=== PATIENT | male | born 1930 | race Caucasian/White ===

== ENCOUNTER 2016-11-27 20:34 | Inpatient (IN) | payer MEDICARE ==
[2016-11-27] MEDS ORDERED: ACETAMINOPHEN 500 MG TABLET ONE (21:22)
[2016-11-27] MEDS ORDERED: ONDANSETRON 4 MG/2ML 2 ML VIAL ONE (21:22)
[2016-11-27] MEDS ORDERED: SODIUM CHLORIDE 0.9% 500 ML ONE (21:22)
[2016-11-27 21:29] LABS: ABSOLUTE NEUTROPHIL COUNT 10.8 K/mm3 (1.8-7.7); BASO % 0.2 % (0.2-1.0); EOS % 0.2 % (0.9-2.9); HEMATOCRIT 38.5 % (32.0-52.0); HEMOGLOBIN 12.6 gm/l (14.0-18.0); IMM NEUT # 0.1 K/mm3 (0-0.2); IMM NEUT% 0.6 % (0-1); LYMPH # 0.7 (1.0-4.8); LYMPH % 5.6 % (15-45); MEAN CELL VOLUME 95.3 fl (80.0-94.0); MEAN CORPUSCULAR HEMOGLOBIN 31.2 pg (27.0-31.0); MEAN CORPUSCULAR HGB CONC 32.7 g/dl (33.0-37.0); MEAN PLATELET VOLUME 10.7 fl (7.4-10.4); MONO % 7.9 % (4-12); NEUT % 85.5 % (43-75); PLATELET COUNT 236 K/mm3 (130-400); RED CELL DISTRIBUTION WIDTH 13.9 % (11.5-14.5)
[2016-11-27 21:40] LABS: ALBUMIN 3.4 gm/dL (3.5-5.7); CALCIUM 8.6 mg/dL (8.6-10.3)
[2016-11-27 21:45] LABS: TROPONIN I 0.03 ng/ml (0.0-0.06)
[2016-11-27 21:49] LABS: CKMB ISOENZYME 2.1 ng/ml (0.6-6.3)
--- NOTE | 2016-11-27 22:18 | CT ---
Name: JACQUI NUNEZ Exam: CT head without contrast Comparison: None Clinical history: Ground-level fall. Weakness. Technique: Helical CT was performed through the head. Angled axial reconstructions were obtained. Sagittal and coronal reconstructions were obtained as well. No contrast was given. An automated dose reduction technique was used to minimize patient radiation dose. Findings: There is no shift of midline structures. Diffuse cerebral atrophy is present. Diffuse symmetric decreased density is noted within the deep white matter tracts most compatible with chronic small vessel ischemic change. There is no mass, mass effect or hemorrhage. Cisterns are uneffaced. Posterior fossa is unremarkable. Visualized paranasal sinuses and mastoid air cells are within normal limits. There is no fracture. Impression: Atrophy and chronic small vessel ischemic change Note: The above report was uploaded to [facility]'s electronic medical records system at 2214 hours.
[2016-11-27] MEDS ORDERED: DILTIAZEM HCL 5 MG/ML 5ML VIAL IV ONE (22:25)
[2016-11-27 23:17] LABS: SPECIFIC GRAVITY 1.025 (1.001-1.030); URINE BILIRUBIN NEGATIVE (NEGATIVE); URINE BLOOD 1+ (NEGATIVE); URINE GLUCOSE (UA) NEGATIVE (NEGATIVE); URINE LEUKOCYTE ESTERASE NEGATIVE (NEGATIVE); URINE NITRITE NEGATIVE (NEGATIVE); URINE PROTEIN TRACE (NEGATIVE); URINE UROBILINOGEN NORMAL (0-1 mg/dl)
[2016-11-27 23:20] LABS: URINE APPEARANCE CLEAR; URINE COLOR AMBER
[2016-11-27 23:28] LABS: URINE BACTERIA 0; URINE EPITHELIAL CELLS 0-2 /hpf; URINE WBC 0-2 /hpf
[2016-11-27] MEDS ORDERED: CEFTRIAXONE 1 GRAM DUPLEX 50 ML IV ONE (23:48)
[2016-11-28] MEDS ORDERED: SODIUM CHLORIDE 0.9% 500 ML ONE (01:56)
[2016-11-28] MEDS ORDERED: SODIUM CHLORIDE 0.9% FLUSH 10 ML ONE (01:56)
[2016-11-28] MEDS ORDERED: PUMP TUBING ONE (01:56)
[2016-11-28] MEDS ORDERED: MAGNESIUM HYDROXIDE 30 ML UDCUP PO PRN (02:02)
[2016-11-28] MEDS ORDERED: BLISTEX LIPSTICK 1 EACH TP PRN (02:02)
[2016-11-28] MEDS ORDERED: SODIUM CHLORIDE 0.9% 100 ML IV PRN (02:02)
[2016-11-28] MEDS ORDERED: BISACODYL 10 MG SUP PR PRN (02:02)
[2016-11-28] MEDS ORDERED: BISACODYL 5 MG TABLET.EC PO PRN (02:02)
[2016-11-28] MEDS ORDERED: MENTHOL/CETYLPYRD 1 EACH LOZENGE PO PRN (02:02)
[2016-11-28] MEDS ORDERED: SODIUM CHLORIDE 0.9% 500 ML IV SCH (02:15)
[2016-11-28] MEDS ORDERED: SODIUM CHLORIDE 0.9% 1,000 ML IV SCH (02:15)
[2016-11-28] MEDS ORDERED: SODIUM CHLORIDE 0.9% 1,000 ML ONE (02:39)
[2016-11-28] MEDS ORDERED: AZITHROMYCIN 500 MG VIAL ONE (02:41)
[2016-11-28] MEDS ORDERED: SODIUM CHLORIDE 0.9% 250 ML IV ONE (02:51)
[2016-11-28] MEDS ORDERED: AZITHROMYCIN IV SCH (03:00)
[2016-11-28] MEDS ORDERED: SODIUM CHLORIDE NS ADD VANTAGE IV SCH ×2 (03:00→21:00)
[2016-11-28 05:38] VITALS: BMI 26.6
--- NOTE | 2016-11-28 07:58 | HP ---
JACQUI NUNEZ [id number] DATE OF ADMISSION: November 28, 2016 CHIEF COMPLAINT: Fever, weakness, and found down. HISTORY OF PRESENT ILLNESS: The patient is an 85-year-old male who was discovered by his on the ground today about 6 or 7 p.m. Paramedics were called. He was noted to be somewhat confused but no fractures or other obvious abnormalities noted. Later he was throwing up and noted to have a fever. He has had some difficulties with walking because of a recent foot injury and is reported to have cracked bone in his ankle the last couple of weeks. He was brought to the emergency room and was thought to have possible atrial fibrillation but is now in normal sinus rhythm. He has had a cough with some chest discomfort noted. He did not get his flu shot this year. He is up to date on Pneumovax. He has had about four falls in the last month, most of them attributed to his ankle injury. No others around him have been ill. PAST MEDICAL HISTORY: Remarkable for: 1. Rheumatoid arthritis. He has been on methotrexate and Plaquenil. 2. He has a history of BPH. 3. History of right fourth finger fracture. 4. Left hip fracture. PAST SURGICAL HISTORY: 1. Open reduction internal fixation of the left hip in 2014. 2. Jaw fracture in 1964. 3. Cardiac stents in 1994. 4. Mastoidectomy. 5. Skin cancer removal. ALLERGIES: NO KNOWN DRUG ALLERGIES. MEDICATIONS: 1. In the past he has been on methotrexate and Plaquenil. 2. Folic acid. 3. Pantothenic acid. 4. Aspirin 81 mg daily. CODE STATUS: According to his family, he would accept a brief resuscitation but would not want any aggressive intervention or a retirement life support situation. SOCIAL HISTORY: He is a [place] [employer] from [employer]. He is a retired horticultural farmer. He lives at [facility]. He has been for almost 70 years. No smoking, no alcohol. No particular sikh affiliation currently. FAMILY HISTORY: Father at 70 of heart failure. Mom in her 80s of Alzheimer's. He had had a sister who had been mentally handicapped. REVIEW OF SYSTEMS: Eyes are a bit dry. He is hard of hearing. Nose is okay. Mouth is okay. He has a partial denture. Neck is okay. Some cough noted, but no syncope. No heart complaints or heart history. He had a previous history of atrial fibrillation in the . No stomach complaints other than he did vomit, but no blood was seen and no coffee grounds noted. He has had some urinary incontinence and some difficulty getting to the bathroom in time. No skin complaints other than a few sores on his feet and he has had his recent ankle injury but no history of stroke or other reasons for walking difficulties. His family does note he has had a little bit of chest discomfort with cough. PHYSICAL EXAM: GENERAL: A sleeping male, moderately responsive. VITAL SIGNS: From the emergency room, temperature 100.1, pulse 112, respirations 22, blood pressure 123/70, 92% saturation and dipping down to 88% here in the intensive care unit. HEAD: Head is normocephalic, atraumatic. EYES: Grossly unremarkable. EARS: Hearing aid present on the left. Right is hard of hearing but no acute abnormalities. NOSE: Is unremarkable. MOUTH: Is unremarkable. NECK: Is supple, no jugular venous distension. LUNGS: Generally clear to auscultation bilaterally on the anterior aspect. HEART: Mostly regular rate and rhythm without significant murmur. ABDOMEN: Soft, nontender, nondistended. Bowel sounds are normal. No rebound, no guarding. No bruits noted. GENITOURINARY: Small amount of blood noted from the meatus on his underwear after catheterization. Genitourinary exam is otherwise unremarkable. EXTREMITIES: Legs, slight swelling at the ankles, right greater than left. Hammertoe is noted. No acute ulcerations noted, no cellulitis. LABORATORY: White count 12.7, hemoglobin 12.6, platelets 236, lactate 1.2, sodium 133, potassium 3.9, chloride 102, CO2 21, BUN 14, creatinine 1.4, glucose 161, calcium 8.6. Liver function tests are normal, albumin 3.4. Urinalysis, specific gravity 1.025, 1+ blood, 5 to 7 red cells, 0 to 2 white cells, 0 to 2 epithelial cells[address]. Brain CT, atrophy, chronic small vessel changes. 2. Ultrasound preliminary shows popliteal cyst but no deep venous thrombosis. 3. Chest x-ray, possible infiltrate seen on lateral view and cardiomegaly noted. ELECTROCARDIOGRAM: Computer read says atrial fibrillation but now at this point he is clearly in normal sinus rhythm. QRS 85 ms, axis 1928. ASSESSMENT AND PLAN: 1. Fall, altered mental status and fevers. Suspect infection such as community acquired pneumonia with sepsis. Plan IV fluids has his blood pressures are running lower now. Plan antibiotics with Rocephin and azithromycin. Will check influenza testing as well. Blood cultures have been done times two. We will consider CT if further evaluation is desired. 2. Reported history of ankle fracture, outpatient followup. 3. Rheumatoid arthritis on methotrexate and Plaquenil. Family not sure about this. They will bring in the medicine list later. 4. Limited code status. This is ordered. 5. BPH. Bladder scan as needed. 6. Hypoxia suggesting mild acute respiratory failure. Will add oxygen and consider nebulizers if needed. 7. Initial concern for atrial fibrillation. Patient is in IMCU to watch for tachycardia requiring Cardizem drip but at this time is now in normal sinus rhythm. 8. Advanced age. We will give IV fluids. 9. Suspected sepsis. We will need to be cautious in the setting of his advanced age. 10. Venous thrombosis prophylaxis. Anticipate use of enoxaparin. cc: [facility]
--- NOTE | 2016-11-28 07:58 | US ---
Exam: Right lower extremity venous ultrasound COMPARISON: None INDICATION: Right leg swelling. FINDINGS: The deep venous system of the right lower extremity was evaluated with color flow, compression, augmentation and spectral analysis. The deep venous system of the right lower extremity from the popliteal vein up to the common femoral vein is patent without evidence of DVT. Proximal calf veins appear patent as well. Fluid collection is noted along the posteromedial aspect of the knee measuring 5.1 x 7.2 x 1.7 cm. IMPRESSION: No evidence of DVT in the right lower extremity. Fluid collection along the posterior medial knee which is nonspecific but could reflect a Martin's cyst. Preliminary report transmitted to the emergency department from [facility] at 2348 hours 11/27/2016.
--- NOTE | 2016-11-28 08:10 | RAD ---
Exam: Two-view chest COMPARISON: 07/09/2015, 07/15/2015 INDICATION: Shortness of breath and abdominal pain. FINDINGS: AP and lateral views of the chest were obtained. Lateral view is limited due to motion artifact. Lung volumes remain low with asymmetric elevation of the left hemidiaphragm. Asymmetric retrocardiac density is noted and unchanged since the most recent prior exam. Right lung is relatively clear. Bones of the chest wall grossly unremarkable. IMPRESSION: Stable appearance of the chest dating back to 07/14/2016 demonstrating low lung volumes and asymmetric retrocardiac density. This may simply reflect atelectasis.
[2016-11-28] MEDS ORDERED: DOCUSATE SODIUM 100 MG CAPSULE PO SCH (09:00)
[2016-11-28] MEDS ORDERED: ENOXAPARIN SODIUM 40 MG/0.4 ML SYRINGE SUB-Q SCH (09:00)
[2016-11-28 12:28] LABS: ABSOLUTE NEUTROPHIL COUNT 11.6 K/mm3 (1.8-7.7); BASO # 0.1 K/mm3 (0.0-0.2); BASO % 0.3 % (0.2-1.0); EOS # 0.1 (0.0-0.5); EOS % 0.5 % (0.9-2.9); HEMATOCRIT 34.8 % (32.0-52.0); HEMOGLOBIN 11.1 gm/l (14.0-18.0); IMM NEUT # 0.1 K/mm3 (0-0.2); IMM NEUT% 0.4 % (0-1); LYMPH % 7.2 % (15-45); MEAN CELL VOLUME 99.1 fl (80.0-94.0); MEAN CORPUSCULAR HEMOGLOBIN 31.6 pg (27.0-31.0); MEAN CORPUSCULAR HGB CONC 31.9 g/dl (33.0-37.0); MEAN PLATELET VOLUME 11.2 fl (7.4-10.4); MONO # 1.7 (0.0-0.8); NEUT % 79.6 % (43-75); PLATELET COUNT 146 K/mm3 (130-400); RED CELL DISTRIBUTION WIDTH 14.3 % (11.5-14.5)
[2016-11-28 12:38] LABS: CALCIUM 7.9 mg/dL (8.6-10.3)
--- NOTE | 2016-11-28 14:16 | RAD ---
11/28/2016 2:11 PM CHEST - 2 VIEWS History: Follow-up chest x-ray. Question pneumonia. Comparison: 11/27/2016 Findings: Two views of the chest are obtained. The lungs again demonstrate the retrocardiac airspace disease seen on prior study. Small effusion would be difficult to exclude. Findings could relate to atelectasis or pneumonia and correlation is recommended. The cardiomediastinal silhouette is unremarkable.. The osseous structures are intact.. Low volumes do limit the study. IMPRESSION: Stable appearance to the retrocardiac airspace disease as seen on multiple prior exams. Findings could relate to atelectasis or pneumonia. A small effusion would be difficult to exclude. Follow-up as clinically warranted.
[2016-11-28 15:19] VITALS: BP 107/54
[2016-11-28] MEDS ORDERED: CEFTRIAXONE SODIUM 1 G in NS 0.9% (MINI-BAG PLUS) 50 ML IV ONE (15:28)
--- NOTE | 2016-11-28 20:10 | DS ---
JACQUI NUNEZ [id number] DATE OF ADMISSION: November 27, 2016 DATE OF DISCHARGE: November 28, 2016 DISCHARGE DIAGNOSES: 1. Community acquired bacterial pneumonia. 2. Weakness. 3. Fever. 4. Confusion. SUMMARY OF ADMISSION AND HOSPITAL COURSE: The patient is an 85-year-old male found on the ground at home in the evening by his . He was somewhat confused. He was noted to have a fever. On evaluation in the emergency department, he was felt to have a pneumonia. He had an elevated white blood cell count of 12,000. He had some right leg swelling and ultrasound of the right leg showed no evidence of a deep venous thrombosis, but he did have a small popliteal cyst behind the right knee. He was admitted by the hospitalist service, treated with Rocephin and Zithromax. He was given IV hydration. During his stay, he remained hemodynamically stable. Oxygen saturations remained in the mid 90s on room air. His fever resolved. He received two doses of Rocephin 1 gram IV daily. He was evaluated by physical therapy and occupational therapy and felt to benefit from Home Health physical therapy and occupational therapy services. He was felt to be medically stable for discharge on November 28, 2016. PHYSICAL EXAM: VITAL SIGNS: His discharge vital signs showed a temperature of 98.1, pulse 83, blood pressure is 107/54, respirations 23, oxygen saturation 93% on room air. Body mass index 26.8. Weight 77.5 kilograms. GENERAL: This is an elderly male in no acute distress. HEENT: Is unremarkable. LUNGS: Are generally clear, maybe have some faint rhonchi in the right base. CARDIOVASCULAR: Exam reveals a regular rate and rhythm without a murmur. ABDOMEN: Is soft, nontender, nondistended with positive bowel sounds. EXTREMITIES: Showed no peripheral edema. LABORATORY STUDIES: On the day of discharge, sodium 135, potassium 4.1, creatinine 1.2, CBC showed a white count of 14.5, hemoglobin of 11.1 and a platelet count of 146,000. DISPOSITION: Home. DISCHARGE CONDITION: Good. DISCHARGE MEDICATIONS: He is prescribed Zithromax 500 mg daily for three more days. He will resume his home medications which include: 1. Methotrexate 10 mg weekly. 2. Aspirin 81 mg daily. 3. Folic acid 1 mg daily. 4. Ferrous sulfate 325 mg twice a week on Monday and . 5. Vitamin C 250 mg daily. 6. Plaquenil 400 mg daily. 7. Chlorthalidone 12.5 mg orally on Monday, Monday and Monday. FOLLOWUP: He will follow up with his primary care provider, Kenyatta Quinn, to be scheduled by the [facility] and referral to Home Health for physical therapy and occupational therapy was to be arranged by the [facility]. Cc: Kenyatta Quinn, [facility]
[2016-11-28] MEDS ORDERED: CEFTRIAXONE SODIUM IV SCH (21:00)
[2016-11-28] MEDS ORDERED: AZITHROMYCIN 500 MG in SODIUM CHLORIDE 0.9% 250 ML IV SCH ×3 (22:00)
[2016-11-28] MEDS ORDERED: CEFTRIAXONE SODIUM 1 G in NS 0.9% (MINI-BAG PLUS) 50 ML IV SCH (23:30)
== END 2016-11-28 16:35 | disposition home or self-care (01) | DRG 193 ==
LOC: ED 20:34 → ICU 22:54
PROVIDERS: ADMIT Family Medicine; ATTEND Family Medicine
DX: J18.9 Pneumonia, unspecified organism (principal); J96.01 Acute respiratory failure with hypoxia; M06.9 Rheumatoid arthritis, unspecified; N40.0 Benign prostatic hyperplasia without lower urinary tract symptoms; M71.20 Synovial cyst of popliteal space [Baker], unspecified knee; R50.9 Fever, unspecified